=== PATIENT | female | born 1955 | race Native Hawaiian/Other Pacific Islander ===

== ENCOUNTER 2017-01-12 10:46 | Outpatient (CLI) | payer OTHER ==
[~2017-01-12 10:46] MED LIST: AMBIEN10 MG PO; OXYCODONE10 MG PO; PROM25TA52 PO; VENTOLIN HFA IN
== END 2017-01-12 11:50 | disposition home or self-care (01) ==
LOC: RAD 10:46
DX: M25.462 Effusion, left knee (principal)

== ENCOUNTER 2018-05-13 12:56 | Outpatient (CLI) | payer OTHER | END 2018-05-13 21:54 | disposition home or self-care (01) | LOC: RAD 12:56 | DX: M54.17 Radiculopathy, lumbosacral region (principal) ==

== ENCOUNTER 2018-06-10 08:27 | Outpatient (CLI) | payer OTHER | END 2018-06-10 19:21 | disposition home or self-care (01) | LOC: MRI 08:27 | DX: M54.17 Radiculopathy, lumbosacral region (principal) ==

== ENCOUNTER 2018-09-13 10:02 | Outpatient (CLI) | payer OTHER | END 2018-09-13 21:51 | disposition home or self-care (01) | LOC: CT 10:02 | DX: H53.8 Other visual disturbances (principal) ==

== ENCOUNTER 2020-04-09 15:20 | Outpatient (CLI) | payer OTHER | END 2020-04-09 23:38 | disposition home or self-care (01) | LOC: RAD 15:20 | DX: M54.17 Radiculopathy, lumbosacral region (principal) ==

== ENCOUNTER 2020-05-08 14:48 | Outpatient (CLI) | payer OTHER | END 2020-05-08 20:27 | disposition home or self-care (01) | LOC: MRI 14:48 | DX: M48.061 Spinal stenosis, lumbar region without neurogenic claudication (principal) ==

== ENCOUNTER 2020-11-30 13:54 | Emergency (ER) | payer OTHER ==
[~2020-11-30] VITALS: Ht 160 cm; Wt 83.9 kg
[2020-11-30 14:06] VITALS: BP 156/105; TEMP 98.1
== END 2020-11-30 17:47 | disposition swing bed (61) ==
LOC: ED 13:54
DX: R42 Dizziness and giddiness (principal); R51.9 Headache, unspecified; R53.83 Other fatigue
CPT/HCPCS: 99283

== ENCOUNTER 2021-01-09 12:15 | Outpatient (CLI) | payer OTHER ==
[~2021-01-09 12:15] MED LIST changes: +CIPR500T PO; +CYCL10TA35 PO; +EUTHYROX50 MCG PO; +METH4PAK3 PO; +METRONIDAZOL500 MG PO
== END 2021-01-09 23:59 | disposition home or self-care (01) ==
LOC: RAD 12:15
PROVIDERS: ATTEND Nurse Practitioner Family
DX: K59.04 Chronic idiopathic constipation (principal)

== ENCOUNTER 2021-01-15 09:09 | Outpatient (CLI) | payer OTHER | END 2021-01-15 19:11 | disposition home or self-care (01) | LOC: CT 09:09 | PROVIDERS: ATTEND Nurse Practitioner Family | DX: F17.210 Nicotine dependence, cigarettes, uncomplicated (principal) ==

== ENCOUNTER 2021-03-11 15:23 | Outpatient (CLI) | payer OTHER ==
[~2021-03-11] VITALS: Ht 157.5 cm; Wt 85.3 kg
== END 2021-03-11 21:19 | disposition home or self-care (01) ==
LOC: INF 15:23
PROVIDERS: ATTEND Family Medicine
DX: Z23 Encounter for immunization (principal); U07.1 COVID-19
CPT/HCPCS: 96365; M0244

== ENCOUNTER 2021-06-17 15:32 | Outpatient (CLI) | payer OTHER ==
[2021-06-17 15:44] LABS: PLATELET COUNT 144 K/uL (152-353)
[2021-06-17 15:54] LABS: POTASSIUM 3.6 mmol/L (3.6-5.2); SODIUM 139 mmol/L (136-145)
== END 2021-06-17 19:24 | disposition home or self-care (01) ==
LOC: LABW 15:32
PROVIDERS: ATTEND Nurse Practitioner Family
DX: R07.89 Other chest pain (principal)
CPT/HCPCS: 36415; 80053; 82550; 82553; 84484; 85027

== ENCOUNTER 2021-06-24 09:46 | Outpatient (CLI) | payer OTHER | END 2021-06-24 18:00 | disposition home or self-care (01) | LOC: RESP 09:46 | PROVIDERS: ATTEND Nurse Practitioner Family | DX: R07.89 Other chest pain (principal) ==

== ENCOUNTER 2021-06-27 08:04 | Outpatient (CLI) | payer OTHER | END 2021-06-27 19:21 | disposition home or self-care (01) | LOC: NM 08:04 | PROVIDERS: ATTEND Family Medicine | DX: R07.89 Other chest pain (principal) | CPT/HCPCS: A9500 ==

== ENCOUNTER 2021-07-28 10:59 | Emergency (ER) | payer OTHER ==
[~2021-07-28] VITALS: Ht 157.5 cm; Wt 89.8 kg
[2021-07-28 11:11] VITALS: TEMP 97.2
[2021-07-28 11:55] LABS: PLATELET COUNT 146 K/uL (152-353)
[2021-07-28 11:59] LABS: POTASSIUM 3.6 mmol/L (3.6-5.2)
[2021-07-28 13:04] VITALS: BP 111/78
== END 2021-07-28 13:05 | disposition home or self-care (01) ==
LOC: ED 10:59
PROVIDERS: Emergency Medicine
DX: J06.9 Acute upper respiratory infection, unspecified (principal); U07.1 COVID-19; F17.210 Nicotine dependence, cigarettes, uncomplicated
CPT/HCPCS: 80053; 85027; 85379; 85610; 96372; 99283; J1885

== ENCOUNTER 2021-12-16 09:46 | Outpatient (CLI) | payer OTHER | END 2021-12-16 19:00 | disposition home or self-care (01) | LOC: CT 09:46 | PROVIDERS: ATTEND Nurse Practitioner Family | DX: F17.210 Nicotine dependence, cigarettes, uncomplicated (principal) ==

== ENCOUNTER 2022-03-04 10:30 | Outpatient (CLI) | payer OTHER | END 2022-03-04 19:00 | disposition home or self-care (01) | LOC: RAD 10:30 | PROVIDERS: ATTEND Nurse Practitioner Primary Care | DX: J40 Bronchitis, not specified as acute or chronic (principal) ==

== ENCOUNTER 2022-11-11 09:49 | Outpatient (CLI) | payer OTHER | END 2022-11-11 19:20 | disposition home or self-care (01) | LOC: RAD 09:49 | PROVIDERS: ATTEND Nurse Practitioner Primary Care | DX: M25.561 Pain in right knee (principal) ==